=== PATIENT | male | born 1955 | race Caucasian/White ===

== ENCOUNTER 2018-07-30 23:01 | Inpatient (IN) | payer OTHER ==
[2018-07-31] MEDS ORDERED: NITROGLYCERIN (SL) 0.4 MG TAB SL (00:30)
[2018-07-31] MEDS ORDERED: NACL 0.9% 3 ML SYG IV (00:30)
[2018-07-31] MEDS ORDERED: ONDANSETRON 4 MG INJ IV (00:30)
[2018-07-31] MEDS ORDERED: ALBUTEROL/IPRATROPIUM (NEB) 3 ML AMP HHN (00:30)
[2018-07-31] MEDS ORDERED: CYCLOBENZAPRINE 10 MG TAB PO (00:30)
[2018-07-31] MEDS ORDERED: ACETAMINOPHEN 325 MG TAB PO (00:30)
[2018-07-31 01:14] LABS: ADD MAN DIFF? NO
[2018-07-31 01:15] LABS: BASOPHILS % 0.8 % (0.0-2.0); EOSINOPHILS # 0.1 10^3/ul (0.0-0.5); EOSINOPHILS % 1.4 % (0.0-7.0); HEMATOCRIT 40.2 % (42.0-52.0); HEMOGLOBIN 13.7 g/dl (14.0-18.0); LYMPHOCYTES # 1.5 10^3/ul (0.8-2.9); LYMPHOCYTES % 30.1 % (15.0-51.0); MEAN CORPUSCULAR HEMOGLOBIN 29.1 pg (29.0-33.0); MEAN CORPUSCULAR HGB CONC 34.1 g/dl (32.0-37.0); MEAN CORPUSCULAR VOLUME 85.5 fl (82.0-101.0); MEAN PLATELET VOLUME 10.2 fl (7.4-10.4); MONOCYTE # 0.4 10^3/ul (0.3-0.9); MONOCYTES % 8.6 % (0.0-11.0); NEUTROPHILS % 58.9 % (39.0-77.0); PLATELET COUNT 213 10^3/UL (140-415); RED CELL DISTRIBUTION WIDTH 13.2 % (11.5-14.5)
[2018-07-31 01:30] LABS: HEMOGLOBIN A1C 5.4 % (0-5.9)
[2018-07-31 01:35] LABS: ALANINE AMINOTRANSFERASE 29 IU/L (13-69); ALBUMIN 3.7 g/dl (3.3-4.9); ALBUMIN/GLOBULIN RATIO 1.54; ALKALINE PHOSPHATASE 64 IU/L (42-121); ANION GAP 7 (5-13); ASPARTATE AMINO TRANSFERASE 21 IU/L (15-46); BILIRUBIN,INDIRECT 0.8 mg/dl (0-1.1); BILIRUBIN,TOTAL 0.8 mg/dl (0.2-1.3); BLOOD UREA NITROGEN 14 mg/dl (7-20); CALCIUM 9.4 mg/dl (8.4-10.2); CARBON DIOXIDE 28 mmol/L (21-31); CHLORIDE 106 mmol/L (97-110); CHOL/HDL RATIO 2.3 RATIO; CHOLESTEROL 149 mg/dl (100-200); CREATINE KINASE 82 IU/L (23-200); CREATININE 0.77 mg/dl (0.61-1.24); Estimated GFR > 60 mL/min (>60); GLUCOSE 78 mg/dl (70-220); HDL CHOLESTEROL 64 mg/dl (30-78); LDL CHOLESTEROL,CALCULATED 70 mg/dl; POTASSIUM 3.8 mmol/L (3.5-5.1); SODIUM 141 mmol/L (135-144); TOTAL PROTEIN 6.1 g/dl (6.1-8.1); TRIGLYCERIDES 75 mg/dl (0-149)
[2018-07-31 01:47] LABS: CK-MB 1.68 ng/ml (0.0-2.4); TROPONIN-I < 0.012 ng/ml (0.000-0.120)
[2018-07-31] MEDS ORDERED: LEVOTHYROXINE 50 MCG TAB (05:30)
[2018-07-31 05:59] LABS: CREATINE KINASE 73 IU/L (23-200)
[2018-07-31] MEDS: LEVOTHYROXINE 50 MCG TAB PO (06:07)
[2018-07-31 06:12] LABS: CK INDEX 2.3; CK-MB 1.69 ng/ml (0.0-2.4); TROPONIN-I < 0.012 ng/ml (0.000-0.120)
[2018-07-31] MEDS: ASPIRIN (EC) 81 MG TAB PO (08:57)
[2018-07-31] MEDS: LISINOPRIL 10 MG TAB PO (08:57)
[2018-07-31] MEDS: ENOXAPARIN 40 MG/0.4 ML SYG SC (09:14)
[2018-08-01] MEDS ORDERED: ATROPINE 1 MG/10 ML SYRINGE IV (00:30)
[2018-08-01 05:28] LABS: ADD MAN DIFF? NO
[2018-08-01 05:38] LABS: BASOPHILS % 0.8 % (0.0-2.0); EOSINOPHILS # 0.1 10^3/ul (0.0-0.5); EOSINOPHILS % 2.9 % (0.0-7.0); HEMATOCRIT 44.7 % (42.0-52.0); HEMOGLOBIN 14.9 g/dl (14.0-18.0); LYMPHOCYTES # 1.3 10^3/ul (0.8-2.9); LYMPHOCYTES % 27.2 % (15.0-51.0); MEAN CORPUSCULAR HEMOGLOBIN 28.8 pg (29.0-33.0); MEAN CORPUSCULAR HGB CONC 33.3 g/dl (32.0-37.0); MEAN CORPUSCULAR VOLUME 86.5 fl (82.0-101.0); MONOCYTE # 0.4 10^3/ul (0.3-0.9); MONOCYTES % 8.5 % (0.0-11.0); NEUTROPHIL # 2.9 10^3/ul (1.6-7.5); NEUTROPHILS % 60.4 % (39.0-77.0); PLATELET COUNT 214 10^3/UL (140-415); RED BLOOD COUNT 5.17 10^6/ul (4.70-6.10); RED CELL DISTRIBUTION WIDTH 13.2 % (11.5-14.5)
[2018-08-01 05:38] LABS: WHITE BLOOD COUNT 4.8 10^3/ul (4.8-10.8)
[2018-08-01] MEDS: LEVOTHYROXINE 50 MCG TAB PO (06:12)
[2018-08-01 06:17] LABS: TROPONIN-I < 0.012 ng/ml (0.000-0.120)
[2018-08-01 06:18] LABS: ANION GAP 7 (5-13); BLOOD UREA NITROGEN 13 mg/dl (7-20); CALCIUM 9.6 mg/dl (8.4-10.2); CARBON DIOXIDE 29 mmol/L (21-31); CHLORIDE 104 mmol/L (97-110); CREATININE 0.86 mg/dl (0.61-1.24); Estimated GFR > 60 mL/min (>60); GLUCOSE 91 mg/dl (70-220); PHOSPHORUS 4.2 mg/dl (2.5-4.9); POTASSIUM 3.9 mmol/L (3.5-5.1); SODIUM 140 mmol/L (135-144)
[2018-08-01] MEDS: ASPIRIN (EC) 81 MG TAB PO (08:17)
[2018-08-01] MEDS: LISINOPRIL 10 MG TAB PO (09:00)
[2018-08-01 09:08] LABS: AMPHETAMINE/METHAMPHETAMINE Negative (NEGATIVE); BARBITURATES Negative (NEGATIVE); BENZODIAZEPINES Negative (NEGATIVE); CANNABINOIDS Positive (NEGATIVE); COCAINE Negative (NEGATIVE); OPIATES Negative (NEGATIVE)
[2018-08-01] MEDS: ENOXAPARIN 40 MG/0.4 ML SYG SC (09:28)
[2018-08-01] MEDS: REGADENOSON 0.4 MG/5 ML SYG (15:49)
[2018-08-01 16:24] LABS: FREE T4 (FREE THYROXINE) 0.99 ng/dl (0.78-2.44)
== END 2018-08-01 19:32 | disposition home or self-care (01) | DRG 313 ==
LOC: 6WM 23:01
DX: R07.89 Other chest pain (principal); Z59.0 Homelessness; R00.1 Bradycardia, unspecified; I10 Essential (primary) hypertension; E03.9 Hypothyroidism, unspecified; E11.9 Type 2 diabetes mellitus without complications; Z87.891 Personal history of nicotine dependence
CPT/HCPCS: 71046; 78452; 80048; 80053; 80061; 80307; 82550; 82553; 83036; 83735; 84100; 84439; 84443; 84484; 85025; 93005; 93017; 93306